=== PATIENT | male | born 1945 | race Caucasian/White ===

== ENCOUNTER 2016-11-18 12:26 | Inpatient (IN) | payer MEDICARE, OTHER ==
[~2016-11-18] VITALS: Ht 172.7 cm; Wt 83.8 kg
[2016-11-18 12:30] VITALS: BP 193/88; PULSE 63; RESP 16; TEMP 98.5; O2SAT 96
[2016-11-18] MEDS ORDERED: ONDANSETRON HCL 4 MG/2 ML VIAL IVP ONE (12:45)
[2016-11-18] MEDS ORDERED: SODIUM CHLORIDE 0.9% FLUSH 5 ML FLUSH IVF PRN (12:45)
[2016-11-18] MEDS ORDERED: MORPHINE SULFATE 4 MG/ML INJ IV ONE (12:45)
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
[2016-11-18 13:12] LABS: AUTOMATED NEUTROPHIL # 14.6 TH/MM3 (1.8-7.7); BASOPHIL # 0.1 TH/MM3 (0-0.2); BASOPHIL % 0.4 % (0.0-2.0); EOSINOPHIL # 0.2 TH/MM3 (0-0.4); EOSINOPHIL % 0.9 % (0.0-4.0); HEMATOCRIT 46.6 % (39.0-51.0); LYMPH % 9.1 % (9.0-44.0); LYMPHOCYTE # 1.6 TH/MM3 (1.0-4.8); MEAN CELL VOLUME 91.7 FL (80.0-100.0); MEAN CORPUSCULAR HGB CONC 33.9 % (32.0-36.0); MONO % 7.2 % (0.0-8.0); NEUT % 82.4 % (16.0-70.0); PLATELET COUNT 210 TH/MM3 (150-450); RED BLOOD COUNT 5.08 MIL/MM3 (4.50-5.90); RED CELL DISTRIBUTION WIDTH 13.8 % (11.6-17.2); WHITE BLOOD COUNT 17.7 TH/MM3 (4.0-11.0)
[2016-11-18 13:25] LABS: HEMO FLAGS AUTO DIFF
[2016-11-18 13:27] LABS: PROTHROMBIN TIME - PATIENT 10.7 SEC (9.8-11.6)
[2016-11-18 13:28] LABS: APTT (PATIENT) 19.3 SEC (24.3-30.1)
[2016-11-18 13:30] LABS: BICARBONATE 24.2 MEQ/L (21.0-32.0); POTASSIUM 4.3 MEQ/L (3.5-5.1)
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
[2016-11-18 13:55] LABS: PLATELET ESTIMATE SMEAR NORMAL (NORMAL); PLATELET MORPHOLOGY NORMAL (NORMAL); SCAN/DIFF AUTO DIFF CONFIRMED
[2016-11-18 14:09] VITALS: BP 156/79; PULSE 65; RESP 18; O2SAT 94
[2016-11-18] MEDS ORDERED: IOHEXOL 350 MG/ML 10 ML VIAL (for RAD DIAG) IV ONE (14:40)
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
[2016-11-18] MEDS ORDERED: MORPHINE SULFATE 4 MG/ML INJ IV PUSH ONE (17:00)
[2016-11-18 17:02] VITALS: BP 158/81; PULSE 68; RESP 16; O2SAT 98
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
[2016-11-18] MEDS ORDERED: MAGNESIUM HYDROXIDE SUSP 30 ML CUP PO PRN (20:00)
[2016-11-18] MEDS ORDERED: ZOLPIDEM TARTRATE 5 MG TAB PO PRN (20:00)
[2016-11-18 20:22] VITALS: BP 157/81; PULSE 63; RESP 18; O2SAT 97
[2016-11-18] MEDS: MORPHINE SULFATE 8 MG/ML INJ IM PRN (22:31)
[2016-11-19 00:20] VITALS: BP 127/78; PULSE 64; RESP 18; TEMP 98; O2SAT 97
[2016-11-19] MEDS: MORPHINE SULFATE 8 MG/ML INJ IM PRN ×2 (02:24→08:38)
[2016-11-19 05:00] VITALS: BP 142/78; PULSE 62; RESP 18; TEMP 98.1; O2SAT 94
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
[2016-11-19 08:00] VITALS: BP_SYST 143; BP_SYST 153; BP_DIAS 76; BP_DIAS 83; PULSE 64; RESP 18; RESP 20; TEMP 98.6; O2SAT 95
[2016-11-19 12:57] VITALS: BP 141/83; PULSE 62; RESP 20; TEMP 98.6; O2SAT 95
[2016-11-19] MEDS: KETOROLAC TROMETHAMINE 10 MG TAB PO SCH ×2 (13:16→18:17)
[2016-11-19 17:30] VITALS: BP 149/86; PULSE 69; RESP 18; TEMP 97.8; O2SAT 93
[2016-11-19 20:00] VITALS: BP 145/78; PULSE 72; RESP 16; TEMP 98.6; O2SAT 93
[2016-11-19] MEDS: ACETAMINOPHEN 325 MG TAB PO PRN (23:08)
[2016-11-20 00:29] VITALS: BP 142/83; PULSE 69; RESP 16; TEMP 98.8; O2SAT 98
[2016-11-20] MEDS ORDERED: OXYC-395 PO (06:26)
[2016-11-20] MEDS ORDERED: SOMA350T PO (06:26)
--- NOTE | 2016-11-20 06:28 | HHI.FF ---
Face to Face Verification Diagnosis: (1) Lumbar transverse process fracture Physical Therapy Gait training Right LE Weight Bearing: WB as tolerated Right LE Range of Motion: Active ROM Left LE Weight Bearing: WB as tolerated Left LE Range of Motion: Active ROM I have seen patient Chris Moses Jr Janneth on 11/20/16. My clinical findings support the need for the requested home health care services because: Limited ability to care for self High risk of falls I certify that my clinical findings support that this patient is homebound because: Unsteady gait/balance Unsafe to leave home unassisted Hectro Dumont MD Nov 20, 2016 06:28
[2016-11-20] MEDS ORDERED: MISC-274 (06:32)
[2016-11-20] MEDS: MORPHINE SULFATE 8 MG/ML INJ IM PRN ×4 (06:47→20:52)
[2016-11-20 07:56] VITALS: BP 134/83; PULSE 60; RESP 18; TEMP 97.9; O2SAT 92
[2016-11-20] MEDS: KETOROLAC TROMETHAMINE 10 MG TAB PO SCH ×3 (08:24→17:52)
[2016-11-20 12:00] VITALS: BP 163/80; PULSE 61; RESP 18; TEMP 97.5; O2SAT 92
[2016-11-20 16:00] VITALS: BP 140/76; PULSE 71; RESP 18; TEMP 97.3; O2SAT 93
[2016-11-20 21:15] VITALS: BP 124/72; PULSE 71; RESP 18; TEMP 96.1; O2SAT 92
[2016-11-21 00:54] VITALS: BP 142/73; PULSE 65; RESP 17; TEMP 97.5; O2SAT 95
[2016-11-21] MEDS: MORPHINE SULFATE 8 MG/ML INJ IM PRN (05:07)
[2016-11-21] MEDS ORDERED: BISACODYL 10 MG SUPP RECTAL ONE (07:00)
[2016-11-21 08:00] VITALS: BP 144/77; PULSE 62; RESP 18; TEMP 96.9; O2SAT 93
[2016-11-21] MEDS: KETOROLAC TROMETHAMINE 10 MG TAB PO SCH ×3 (08:57→20:28)
[2016-11-21 12:00] VITALS: BP 148/82; PULSE 63; RESP 18; TEMP 96.7; O2SAT 94
[2016-11-21 16:00] VITALS: BP 130/78; PULSE 64; RESP 18; TEMP 97.9; O2SAT 93
[2016-11-21 20:51] VITALS: BP 155/69; PULSE 78; RESP 18; TEMP 98.9; O2SAT 94
[2016-11-22] MEDS: ACETAMINOPHEN 325 MG TAB PO PRN (00:19)
[2016-11-22 00:56] VITALS: BP 158/75; PULSE 73; RESP 18; TEMP 96.5; O2SAT 95
[2016-11-22] MEDS: KETOROLAC TROMETHAMINE 10 MG TAB PO SCH (08:48)
[2016-11-22 09:05] VITALS: BP 146/74; PULSE 81; RESP 16; TEMP 97.6; O2SAT 97
[2016-11-22] MEDS ORDERED: TRAM50TA PO (09:09)
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
== END 2016-11-22 10:59 | disposition home or self-care (01) | DRG 552 ==
LOC: NEPE 12:26 → NEDA 17:21 → OBSVTOIN 20:13 → NEPGCP 21:41 → N06A 11-19 17:39
PROVIDERS: ADMIT Orthopaedic Surgery; ATTEND Orthopaedic Surgery
DX: S32.019A Unspecified fracture of first lumbar vertebra, initial encounter for closed fracture (principal); M47.817 Spondylosis without myelopathy or radiculopathy, lumbosacral region; S32.029A Unspecified fracture of second lumbar vertebra, initial encounter for closed fracture; S32.039A Unspecified fracture of third lumbar vertebra, initial encounter for closed fracture; S32.049A Unspecified fracture of fourth lumbar vertebra, initial encounter for closed fracture; S16.1XXA Strain of muscle, fascia and tendon at neck level, initial encounter; S63.501A Unspecified sprain of right wrist, initial encounter; V95.9XXA Unspecified aircraft accident injuring occupant, initial encounter; Z87.891 Personal history of nicotine dependence; Z88.2 Allergy status to sulfonamides
CPT/HCPCS: 70450; 71010; 71260; 72125; 72170; 73110; 74177; 80048; 85025; 85610; 85730; 96374; 96375; 96376; J2270; J2405; L0627; Q9967